=== PATIENT | female | born 1950 | race Caucasian/White ===

== ENCOUNTER 2017-02-26 11:22 | Day surgery (SDC) | payer MEDICARE ==
--- NOTE | ~2017-02-26 | EGD ---
EGD REPORT [facility] [address] [address] NAME: NORM LOMBARDO : [birth year] STATUS : REG [facility]#: [id number] AGE: 66 ADM/REG DATE : 02/26/17 MR#: [id number] REPORT SERV DATE: 02/26/17 DICTATED BY: DENISSE VELIZ DATE: 02/26/17 REPORT STATUS : Draft TRANSCRIBED BY: [facility] DATE: 02/26/17 Endoscopy Center Patient Name: Norm Lombardo Date of : 1950 Attending MD: DENISSE VELIZ MD Procedure Date No Time: 02/26/2017 Procedure: Upper GI endoscopy Indications: Heartburn, Heme positive stool, Nausea Referring MD: KASHMIR HANCOCK Medicines: Monitored Anesthesia Care Complications: No immediate complications. Procedure: Pre-Anesthesia Assessment: - ASA Grade Assessment: II - A patient with mild systemic disease. After obtaining informed consent, the endoscope was passed under direct vision. Throughout the procedure, the patient's blood pressure, pulse, and oxygen saturations were monitored continuously. The GIF H190 [id number] was introduced through the mouth, and advanced to the second part of duodenum. The upper GI endoscopy was accomplished without difficulty. The patient tolerated the procedure well. Findings: Localized mild erythema was found at the gastroesophageal junction. Biopsies were taken with a cold forceps for histology. Localized mildly erythematous mucosa without bleeding was found in the gastric antrum. Biopsies were taken with a cold forceps for histology. The cardia and gastric fundus were normal on retroflexion. The duodenal bulb and 2nd part of the duodenum were normal. Impression: - Erythema at the gastroesophageal junction. Biopsied. - Erythematous mucosa in the antrum. Biopsied. - Normal duodenal bulb and 2nd part of the duodenum. Recommendation: - Patient has a contact number available for emergencies. The signs and symptoms of potential delayed complications were discussed with the patient. Return to normal activities tomorrow. Written discharge instructions were provided to the patient. - Regular diet. - Continue present medications. - Await pathology results. Procedure Code(s): --- Professional --- EGD REPORT [facility] [address] [place], [place] [address]justin Malloy [place] [place]. [address] NAME: NORM LOMBARDO : [birth year] STATUS : REG [facility] [place] PAT#: [id number] AGE: 66 ADM/REG DATE : 02/26/17 MR#: [id number] REPORT SERV DATE: 02/26/17 DICTATED BY: DENISSE VELIZ DATE: 02/26/17 REPORT STATUS : Draft TRANSCRIBED BY: [employer] DATE: 02/26/17 21817, Esophagogastroduodenoscopy, flexible, transoral; with biopsy, single or multiple Diagnosis Code(s): --- Professional --- K22.9, Disease of esophagus, unspecified K31.9, Disease of stomach and duodenum, unspecified R12, Heartburn R19.5, Other fecal abnormalities R11.0, Nausea CPT copyright 2013 [employer]. All rights reserved. The codes documented in this report are preliminary and upon disk sharpener review may be revised to meet current compliance requirements. DENISSE VELIZ MD 02/26/2017 12:46 PM This report has been signed electronically. Number of Addenda: 0 Note Initiated On: 02/26/2017 12:33 PM Scope Withdrawal Time 0 hours 0 minutes 0 seconds [address] [place] [address]
--- NOTE | ~2017-02-26 | EGD ---
EGD REPORT [facility] [address]. [address] NAME: NORM LOMBARDO : [birth year] STATUS : REG [facility]#: [id number] AGE: 66 ADM/REG DATE : 02/26/17 MR#: [id number] REPORT SERV DATE: 02/26/17 DICTATED BY: DENISSE VELIZ DATE: 02/26/17 REPORT STATUS : Draft TRANSCRIBED BY: [employer] DATE: 02/26/17 Endoscopy Center Patient Name: Norm Lombardo Date of : 1950 Attending MD: DENISSE VELIZ MD Procedure Date No Time: 02/26/2017 Procedure: Colonoscopy Indications: Heme positive stool Referring MD: KASHMIR HANCOCK Medicines: Monitored Anesthesia Care Complications: No immediate complications. Procedure: Pre-Anesthesia Assessment: - ASA Grade Assessment: II - A patient with mild systemic disease. After I obtained informed consent, the scope was passed under direct vision. Throughout the procedure, the patient's blood pressure, pulse, and oxygen saturations were monitored continuously. The PCF H190L [id number] was introduced through the anus and advanced to the terminal ileum, with identification of the appendiceal orifice and IC valve. The colonoscopy was performed without difficulty. The patient tolerated the procedure well. The quality of the bowel preparation was good. Findings: The digital rectal exam was normal. Pertinent negatives include no palpable rectal lesions. The terminal ileum appeared normal. A few diverticula were found in the transverse colon and in the ascending colon. Multiple diverticula were found in the sigmoid colon and in the descending colon. A sessile polyp was found in the distal sigmoid colon. The polyp was 7 mm in size. The polyp was removed with a cold snare. Resection and retrieval were complete. Four sessile polyps were found in the rectum. The polyps were 3 to 6 mm in size. These polyps were removed with a cold biopsy forceps. Resection and retrieval were complete. Hemorrhoids were found during retroflexion and were mild. Impression: - The examined portion of the ileum was normal. - Diverticulosis in the transverse colon and in the ascending colon. - Diverticulosis in the sigmoid colon and in the descending colon. EGD REPORT [address] [address] NAME: NORM LOMBARDO : [birth year] STATUS : REG [facility] [place] PAT#: [id number] AGE: 66 ADM/REG DATE : 02/26/17 MR#: [id number] REPORT SERV DATE: 02/26/17 DICTATED BY: DENISSE VELIZ DATE: 02/26/17 REPORT STATUS : Draft TRANSCRIBED BY: [employer] DATE: 02/26/17 - One 7 mm polyp in the distal sigmoid colon. Resected and retrieved. - Four 3 to 6 mm polyps in the rectum. Resected and retrieved. - Hemorrhoids. Recommendation: - Patient has a contact number available for emergencies. The signs and symptoms of potential delayed complications were discussed with the patient. Return to normal activities tomorrow. Written discharge instructions were provided to the patient. - Regular diet. - Continue present medications. - Repeat colonoscopy for surveillance based on pathology results. - Return to GI clinic PRN. Procedure Code(s): --- Professional --- 23139, Colonoscopy, flexible, proximal to splenic flexure; with removal of tumor(s), polyp(s), or other lesion(s) by snare technique 12244, 59, Colonoscopy, flexible, proximal to splenic flexure; with biopsy, single or multiple Diagnosis Code(s): --- Professional --- K64.9, Unspecified hemorrhoids K57.30, Diverticulosis of large intestine without perforation or abscess without bleeding K62.1, Rectal polyp D12.5, Benign neoplasm of sigmoid colon R19.5, Other fecal abnormalities CPT copyright 2013 [employer]. All rights reserved. The codes documented in this report are preliminary and upon x ray consultant review may be revised to meet current compliance requirements. DENISSE VELIZ MD 02/26/2017 1:10 PM This report has been signed electronically. Number of Addenda: 0 Note Initiated On: 02/26/2017 12:33 PM Scope Withdrawal Time 0 hours 15 minutes 32 seconds EGD REPORT [facility] [address] [address] NAME: NORM LOMBARDO : [birth year] STATUS : REG [facility] [place] PAT#: [id number] AGE: 66 ADM/REG DATE : 02/26/17 MR#: [id number] REPORT SERV DATE: 02/26/17 DICTATED BY: DENISSE VELIZ DATE: 02/26/17 REPORT STATUS : Draft TRANSCRIBED BY: [employer] DATE: 02/26/17 [address] [address]
== END 2017-02-26 23:59 | disposition home or self-care (01) ==
LOC: DMU 11:22
PROVIDERS: Internal Medicine Gastroenterology
PROC: 0DB68ZX Excision of Stomach, Via Natural or Artificial Opening Endoscopic, Diagnostic (ICD-10-PCS; 2017-02-26)
PROC: 0DBN8ZZ Excision of Sigmoid Colon, Via Natural or Artificial Opening Endoscopic (ICD-10-PCS; principal; 2017-02-26 12:42)
PROC: 0DBP8ZZ Excision of Rectum, Via Natural or Artificial Opening Endoscopic (ICD-10-PCS; 2017-02-26 12:42)
PROC: 0DB48ZX Excision of Esophagogastric Junction, Via Natural or Artificial Opening Endoscopic, Diagnostic (ICD-10-PCS; 2017-02-26 12:42)
DX: K29.50 Unspecified chronic gastritis without bleeding (principal); K63.5 Polyp of colon; K62.1 Rectal polyp; K57.30 Diverticulosis of large intestine without perforation or abscess without bleeding; I10 Essential (primary) hypertension; K21.9 Gastro-esophageal reflux disease without esophagitis; E66.9 Obesity, unspecified; F32.9 Major depressive disorder, single episode, unspecified; Z90.710 Acquired absence of both cervix and uterus; Z90.13 Acquired absence of bilateral breasts and nipples; Z87.442 Personal history of urinary calculi; Z85.3 Personal history of malignant neoplasm of breast
CPT/HCPCS: 88305